=== PATIENT | male | born 1980 | race Caucasian/White ===

== ENCOUNTER 2021-11-14 18:49 | Emergency (ER) | payer SELFPAY ==
[2021-11-14] MEDS ORDERED: Azithromycin 250 MG TAB ONE (20:36)
[2021-11-14] MEDS ORDERED: cefTRIAXone\\ROCEPHIN 500 MG VIAL ONE (20:36)
[2021-11-14] MEDS ORDERED: Sterile Water 10 ML ONE (20:36)
== END 2021-11-14 20:56 | disposition home or self-care (01) ==
LOC: CSHERS 18:49
DX: R30.0 Dysuria (principal)
CPT/HCPCS: 96372; 99283; J0696